=== PATIENT | female | born 2000 | race African-American/Black ===

== ENCOUNTER 2021-06-20 10:05 | Emergency (ER) | payer SELFPAY ==
[2021-06-20 11:05] LABS: Absolute Lymphocytes (CBC) 1.1 K/uL (0.7-4.9); Hematocrit 34.8 % (36.0-45.0); Lymphocytes % 19.5 % (15.3-44.8); MPV 9.6 fL (7.6-11.3); RBC Red Blood Cell Count 4.81 M/uL (3.86-4.86)
[2021-06-20 11:37] LABS: BUN Blood Urea Nitrogen 8 mg/dL (7-18); Bicarbonate 24 mmol/L (21-32); Glucose Level 77 mg/dL (74-106); Potassium 3.7 mmol/L (3.5-5.1); Sodium Level 136 mmol/L (136-145)
[2021-06-20 11:56] LABS: HCG, Quantitative 166655 mIU/mL (1-3)
--- NOTE | 2021-06-20 12:26 | RAD REPORT ---
EXAM DESCRIPTION: US - Transvaginal OB - 06/20/2021 11:49 am CLINICAL HISTORY: ABD PAIN COMPARISON: No comparisons FINDINGS: IUP identified. The crown-rump length measures 3.3 cm which is consistent with 10 week 1 d ay. heart tones are present. The uterus measures 8.3 cm in long axis. Complex right adnexal mass with cystic and solid components. There are multiple echogenic foci noted. The mass has blood flow. It measures 8.3 by 4.8 cm. IMPRESSION: Single viable IUP with positive heart tones measuring 10 weeks 1 day with NATHEN of 0 01/15/2022. Complex right adnexal mass of uncertain etiology. This could represent a dermoid but is not well julian acterized. Recommend gynecologic referral.
[2021-06-20 12:53] LABS: Urine Blood Trace-intact (Negative); Urine Glucose Negative (Negative); Urine Protein Negative (Negative); Urine Specific Gravity 1.025 (1.005-1.030)
--- NOTE | 2021-06-20 14:01 | EDPHYS ---
Physician Documentation [facility] Name: Kris Mariee Age: 21 yrs Sex: Female : 2000 Arrival Date: 06/20/2021 Time: 10:10 Bed 14 Private MD: ED Physician Isai Wood HPI: 06/20 11:48 This 21 yrs old Black Female presents to ER via Wheelchair with complaints of 9 Wks ma2 Preg -Vaginal Bleeding. 11:48 9 weeks , G1, P1, was 0, patient presents with 1 episode of spotting today, she ma2 noticed pink spots of blood, patient denies abdominal pain or vaginal bleeding, no urinary symptoms or any other health issues.. 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 - Social history:: Smoking status: Patient denies any tobacco usage or history of. - Family history:: not pertinent. ROS: 11:48 Negative for pelvic pain, bladder incontinence, foul smelling urine. ma2 11:48 Constitutional: Negative for fever, chills, and weight loss, Eyes: Negative for injury, pain, redness, and discharge. 11:48 All other systems are negative. Exam: 11:48 Constitutional: This is a well developed, well nourished patient who is awake, alert, ma2 and in no acute distress. Chest/axilla: Normal chest wall appearance and motion. Nontender with no deformity. No lesions are appreciated. Cardiovascular: Regular rate and rhythm with a normal S1 and S2. No gallops, murmurs, or rubs. Normal PMI, no JVD. No pulse deficits. Respiratory: Lungs have equal breath sounds bilaterally, clear to auscultation and percussion. No rales, rhonchi or wheezes noted. No increased work of breathing, no retractions or nasal flaring. Abdomen/GI: Soft, non-tender, with normal bowel sounds. No distension or tympany. No guarding or rebound. No evidence of tenderness throughout. Skin: Warm, dry with normal turgor. Normal color with no rashes, no lesions, and no evidence of cellulitis. MS/ Extremity: Pulses equal, no cyanosis. Neurovascular intact. Full, normal range of motion. Vital Signs: 10:26 BP 123 / 72; Pulse 74; Resp 16 S; Temp 98.2; Pulse Ox 100% on R/A; Weight 54.43 kg (R); jg9 Height 5 ft. 7 in. (170.18 cm) (R); 12:07 BP 118 / 75; Pulse 72; Resp 16; Pulse Ox 99% on R/A; ab2 13:14 BP 117 / 64; Pulse 76; Resp 16; Pulse Ox 98% on R/A; ab2 14:04 BP 109 / 74; Pulse 75; Resp 16; Pulse Ox 99% on R/A; ab2 10:26 Body Mass Index 18.79 (54.43 kg, 170.18 cm) jg9 MDM: 10:32 Patient medically screened. ma2 11:48 Differential diagnosis: cervicitis, dysfunctional uterine bleeding, dysmenorrhea, ma2 ectopic , kidney stone. Data reviewed: vital signs, nurses notes. Counseling: I had a detailed discussion with the patient and/or guardian regarding: the historical points, exam findings, and any diagnostic results supporting the discharge/admit diagnosis, the presence of at least one elevated blood pressure reading (>120/80) during this emergency department visit, the need for outpatient follow up. Response to treatment: the patient's symptoms have markedly improved after treatment. 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 Has bacteriuria, IUP unremarkable with good heart rate. 06/20 10:25 Order name: Abo/rh Typing; Complete Time: 13:16 ma2 06/20 10:25 Order name: Basic Metabolic Panel; Complete Time: 13:16 ma2 06/20 10:25 Order name: CBC with Diff; Complete Time: 11:51 ma2 06/20 10:25 Order name: Quantitative Hcg; Complete Time: 13:16 ma2 06/20 12:53 Order name: Urine Dipstick-Ancillary; Complete Time: 13:16 EDMS 06/20 10:25 Order name: IV Saline Lock; Complete Time: 10:48 ma2 06/20 10:25 Order name: Labs collected and sent; Complete Time: 10:48 ny2 06/20 10:25 Order name: NPO; Complete Time: 10:48 ny2 06/20 10:25 Order name: Urine Dipstick-Ancillary (obtain specimen); Complete Time: 13:03 ny2 06/20 11:09 Order name: Transvaginal OB; Complete Time: 13:16 EDMS Administered Medications: No medications were administered Disposition Summary: 06/20/21 14:00 Discharge Ordered Location: Home ma2 Condition: Stable ma2 Diagnosis - Threatened ma2 - Other ovarian cysts - Right ovarian dermoid cyst ma2 - UTI/ Urinary tract infection, site not specified ma2 Followup: ma2 - With: - When: Tomorrow - Reason: Continuance of care Discharge Instructions: - Discharge Summary Sheet ma2 - Urinary Tract Infection, Adult ma2 - Threatened Miscarriage, [id number] ma2 Forms: - Medication Reconciliation Form ma2 - Thank You Letter ma2 - Antibiotic Education ma2 - Prescription Opioid Use ma2 - Work release form ab2 Prescriptions: - Amoxicillin 875 mg Oral Tablet - take 1 tablet by ORAL route every 12 hours for 10 days; 20 tablet; Refills: 0, ma2 Product Selection Permitted Signatures: Dispatcher [employer] EDMS Isai Wood MD MD ma2 Alfreda Cardoso RN RN jg9 Corrections: (The following items were deleted from the chart) 10:29 10:28 Home Meds: None; jg9 jg9 11:09 10:25 OB Complete+US.RAD.BRZ ordered. EDMS EDMS
--- NOTE | 2021-06-20 14:01 | ER ---
Nurse's Notes [facility] Name: Kris Mariee Age: 21 yrs Sex: Female : 2000 Arrival Date: 06/20/2021 Time: 10:10 Bed 14 Private MD: Diagnosis: Threatened ;Other ovarian cysts-Right ovarian dermoid cyst;UTI/ Urinary tract infection, site not specified Presentation: 06/20 10:26 Chief complaint: Patient states: I woke up feeling weak, I have not been eating well, I jg9 am 9 wks and when I used the bathroom this morning I saw some blood. I vomited 1x today. -1, Para-0. Coronavirus screen: Vaccine status: Patient reports being unvaccinated. Ebola Screen: Patient negative for fever greater than or equal to 101.5 degrees Fahrenheit, and additional compatible Ebola Virus Disease symptoms Patient denies exposure to infectious person. Patient denies travel to an Ebola-affected area in the 21 days before illness onset. Initial Sepsis Screen: Does the patient meet any 2 criteria? No. Patient's initial sepsis screen is negative. Does the patient have a suspected source of infection? No. Patient's initial sepsis screen is negative. Risk Assessment: Do you want to hurt yourself or someone else? Patient reports no desire to harm self or others. Onset of symptoms was June 20, 2021. 10:26 Method Of Arrival: Wheelchair jg9 10:26 Acuity: JEANNIE 3 jg9 Triage Assessment: 10:29 General: Appears uncomfortable, Behavior is calm. Pain: Denies pain. 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 - Social history:: Smoking status: Patient denies any tobacco usage or history of. - Family history:: not pertinent. Screenin:29 Abuse screen: Denies threats or abuse. Denies injuries from another. Nutritional jg9 screening: No deficits noted. Tuberculosis screening: No symptoms or risk factors identified. Fall Risk None identified. Assessment: 10:46 General: Appears in no apparent distress. comfortable, Behavior is calm, cooperative, ab2 appropriate for age. Pain: Denies pain. Neuro: Level of Consciousness is awake, alert, obeys commands, Oriented to person, place, time, situation, Appropriate for age Manager Learning are equal bilaterally Moves all extremities. Gait is steady, Speech is normal, Facial symmetry appears normal. Cardiovascular: Reports None Denies chest pain, shortness of breath, Heart tones S1 S2 present Patient's skin is warm and dry. Respiratory: No deficits noted. Airway is patent Respiratory effort is even, unlabored, Respiratory pattern is regular, symmetrical, Breath sounds are clear. GI: Abdomen is round Bowel sounds present X 4 quads. Reports nausea, vomiting. : Reports vaginal bleeding that is light flow. EENT: No deficits noted. No signs and/or symptoms were reported regarding the EENT system. Derm: No deficits noted. No signs and/or symptoms reported regarding the dermatologic system. Skin is intact, is healthy with good turgor, Skin is pink, warm \T\ dry. Musculoskeletal: No deficits noted. No signs and/or symptoms reported regarding the musculoskeletal system. 12:07 Reassessment: Patient appears in no apparent distress at this time. Awaiting results of ab2 US. Patient resting comfortably, denies any needs. 14:00 Reassessment: Patient appears in no apparent distress at this time. No changes from ab2 previously documented assessment. Pt states she is feeling better, awaiting disposition. Patient states symptoms have improved. Vital Signs: 10:26 BP 123 / 72; Pulse 74; Resp 16 S; Temp 98.2; Pulse Ox 100% on R/A; Weight 54.43 kg (R); jg9 Height 5 ft. 7 in. (170.18 cm) (R); 12:07 BP 118 / 75; Pulse 72; Resp 16; Pulse Ox 99% on R/A; ab2 13:14 BP 117 / 64; Pulse 76; Resp 16; Pulse Ox 98% on R/A; ab2 14:04 BP 109 / 74; Pulse 75; Resp 16; Pulse Ox 99% on R/A; ab2 10:26 Body Mass Index 18.79 (54.43 kg, 170.18 cm) jg9 ED Course: 10:10 Patient arrived in ED. ds1 10:23 Isai Wood MD is Attending Physician. ma2 10:28 Triage completed. jg9 10:30 Wilfrid Villaseñor is Primary Nurse. ab2 10:30 Arm band placed on right wrist. jg9 10:48 Patient has correct armband on for positive identification. Bed in low position. Call ab2 light in reach. Side rails up X2. 10:48 No provider procedures requiring assistance completed. Inserted saline lock: 20 gauge ab2 in right antecubital area, using aseptic technique. Blood collected. 10:48 Abo/rh Typing Sent. ab2 10:48 Basic Metabolic Panel Sent. ab2 10:48 CBC with Diff Sent. ab2 10:48 Quantitative Hcg Sent. ab2 11:43 Transvaginal OB In Process Unspecified. EDCA 13:59 Amol Sargent MD is Referral Physician. ma2 14:13 IV discontinued, intact, bleeding controlled, No redness/swelling at site. Pressure ab2 dressing applied. Administered Medications: No medications were administered Outcome: 14:00 Discharge ordered by MD. ma2 14:13 Discharged to home ambulatory. ab2 14:13 Condition: good 14:13 Discharge instructions given to patient, Instructed on discharge instructions, follow up and referral plans. medication usage, Demonstrated understanding of instructions, follow-up care, medications, Prescriptions given X 1. 14:13 Patient left the ED. ab2 Signatures: Dispatcher [employer] [facility] Tiny Renae ds1 Isai Wood MD MD ma2 Alfreda Cardoso RN RN jg9 Wilfrid Villaseñor ab2 Corrections: (The following items were deleted from the chart) 10:29 10:28 Home Meds: None; jg9 jg9
[2021-06-20 14:19] VITALS: TEMP 98.2
[2021-06-20 14:23] VITALS: BP 109/74; O2SAT 99
== END 2021-06-20 14:13 | disposition home or self-care (01) ==
LOC: ER 10:05
DX: O20.0 Threatened abortion (principal); O23.41 Unspecified infection of urinary tract in pregnancy, first trimester; N39.0 Urinary tract infection, site not specified; Z3A.10 10 weeks gestation of pregnancy; D27.0 Benign neoplasm of right ovary
CPT/HCPCS: 36415; 76817; 80048; 81003; 84702; 85025; 86900; 86901; 99284